=== PATIENT | male | born 1970 | race Caucasian/White ===

== ENCOUNTER 2020-03-30 08:02 | Outpatient (CLI) | payer OTHER ==
[2020-03-30] MEDS ORDERED: AMLO-211 PO (08:37)
[2020-03-30] MEDS ORDERED: DOXA1TAB2 PO (08:37)
[2020-03-30] MEDS ORDERED: CARV-39 PO (08:37)
[2020-03-30] MEDS ORDERED: CYCL10TA2 PO (08:37)
[2020-03-30] MEDS ORDERED: VALS1TAB30 PO (08:37)
[2020-03-30] MEDS ORDERED: TIZA4TAB2 PO (08:38)
[2020-03-30 09:49] LABS: BASOPHILS % (AUTO) 1 % (0-1); EOSINOPHILS % (AUTO) 3 % (1-7); LYMPHOCYTES % (AUTO) 30 % (22-44); MEAN CORPUSCULAR HEMOGLOBIN 29.7 pg (27.5-34.5); MEAN CORPUSCULAR HGB CONC 33.7 g/dL (33.2-36.2); MEAN PLATELET VOLUME 7.8 fL (7.4-10.4); MONOCYTES % (AUTO) 9 % (2-9); NEUTROPHILS % (AUTO) 58 % (42-75); PLATELET COUNT 363 x10^3/uL (130-400); RED CELL DISTRIBUTION WIDTH 13.8 % (9.4-14.8)
[2020-03-30 09:57] LABS: MD NO
[2020-03-30 09:58] LABS: ALBUMIN 3.7 g/dL (3.4-5.0); ANION GAP 7 mmol/L (5-15); CALCIUM 8.8 mg/dL (8.5-10.1); CHLORIDE 106 mmol/L (98-107)
[2020-03-30 09:59] LABS: INTERNATIONAL NORMALIZED RATIO 1.17 (0.93-1.1); PROTHROMBIN TIME 12.5 Seconds (9.6-11.5)
[2020-03-30 10:02] LABS: ALANINE AMINOTRANSFERASE 32 U/L (12-78); ALKALINE PHOSPHATASE 90 U/L (45-117); BILIRUBIN,TOTAL 0.5 mg/dL (0.2-1.0); CREATININE 0.92 mg/dL (0.7-1.3); TOTAL PROTEIN 7.3 g/dL (6.4-8.2)
[2020-03-31 10:48] LABS: MICROSCOPIC NOT IND
== END 2020-03-30 23:59 | disposition home or self-care (01) ==
LOC: STAR 08:02
PROVIDERS: ATTEND Neurological Surgery
DX: Z01.812 Encounter for preprocedural laboratory examination (principal); Z01.810 Encounter for preprocedural cardiovascular examination; Z20.822 Contact with and (suspected) exposure to COVID-19; Z01.811 Encounter for preprocedural respiratory examination; R82.90 Unspecified abnormal findings in urine; R94.31 Abnormal electrocardiogram [ECG] [EKG]; R79.1 Abnormal coagulation profile; M43.06 Spondylolysis, lumbar region; M51.36 Other intervertebral disc degeneration, lumbar region; M51.34 Other intervertebral disc degeneration, thoracic region
CPT/HCPCS: 71046; 80053; 81003; 85025; 85610; 85730; 87635; 93005

== ENCOUNTER 2020-04-03 11:36 | Observation (INO) | payer OTHER ==
[2020-04-02 10:22] LABS: ANION GAP 6 mmol/L (5-15); CHLORIDE 102 mmol/L (98-107); CREATININE 0.97 mg/dL (0.7-1.3)
[2020-04-02 10:25] LABS: INTERNATIONAL NORMALIZED RATIO 1.25 (0.93-1.1); PROTHROMBIN TIME 13.3 Seconds (9.6-11.5)
[~2020-04-03] VITALS: Ht 170.2 cm; Wt 116.0 kg
[~2020-04-03 11:36] MED LIST: AMLO-211 PO; BACITRACIN 50,000 UNIT ONE; BUPIVACAINE 0.25% ONE; BUPIVACAINE/PF 0.5% ONE; CARV-39 PO; CYCL10TA2 PO; DOXA1TAB2 PO; TIZA4TAB2 PO; VALS1TAB30 PO; VANCOMYCIN 1,000 MG ONE
[2020-04-03] MEDS ORDERED: CHLORHEXIDINE 15 ML UDC MM STA (11:51)
[2020-04-03] MEDS ORDERED: LACTATED RINGERS 1,000 ML IV SCH (12:00)
[2020-04-03 12:10] VITALS: BP 149/95
[2020-04-03] MEDS ORDERED: FENTANYL PF 1000 MCG/20ML ONE (12:58)
[2020-04-03] MEDS ORDERED: MIDAZOLAM 1 MG/ML, 2ML ONE (12:58)
[2020-04-03 13:21] LABS: ALANINE AMINOTRANSFERASE 57 U/L (12-78); ANION GAP 7 mmol/L (5-15); CALCIUM 8.7 mg/dL (8.5-10.1); CHLORIDE 107 mmol/L (98-107); CREATININE 0.87 mg/dL (0.7-1.3)
[2020-04-03 13:23] LABS: ALKALINE PHOSPHATASE 99 U/L (45-117); BILIRUBIN,TOTAL 0.3 mg/dL (0.2-1.0); TOTAL PROTEIN 7.8 g/dL (6.4-8.2)
[2020-04-03 13:24] LABS: INTERNATIONAL NORMALIZED RATIO 1.23 (0.93-1.1); PROTHROMBIN TIME 13.1 Seconds (9.6-11.5)
[2020-04-03] MEDS ORDERED: PROPOFOL 10 MG/ML, 20ML ONE (14:02)
[2020-04-03] MEDS ORDERED: CEFAZOLIN 1,000 MG ONE (14:02)
[2020-04-03] MEDS ORDERED: ONDANSETRON 2MG/ML, 2ML ONE (14:02)
[2020-04-03] MEDS ORDERED: ROCURONIUM 10 MG/ML,10ML ONE (14:02)
[2020-04-03] MEDS ORDERED: DEXAMETHASONE 4 MG/ML, 1ML ONE (14:02)
[2020-04-03] MEDS ORDERED: SUCCINYLCHOLINE 20 MG/ML, 10ML ONE (14:02)
[2020-04-03] MEDS ORDERED: EPINEPHRINE 1 MG/ML, 1ML INFIL ONE (14:48)
[2020-04-03] MEDS ORDERED: FENTANYL PF 100 MCG/2ML ONE ×2 (14:54→18:26)
[2020-04-03] MEDS ORDERED: BUPIVACAINE LIPOSOME/PF 20ML INFIL ONE (14:59)
[2020-04-03] MEDS ORDERED: FENTANYL PF 100 MCG/2ML EPIDPUSH ONE (15:00)
[2020-04-03] MEDS ORDERED: BUPIVACAINE LIPOSOME/PF 10ML INFIL ONE (15:00)
[2020-04-03] MEDS ORDERED: BUPIVACAINE/PF 0.25% EPIDPUSH ONE (15:00)
[2020-04-03] MEDS ORDERED: hydrALAzine 20 MG/ML, 1ML IV PRN (16:00)
[2020-04-03] MEDS ORDERED: morphine SULFATE 10 MG/ML, 1ML IVPush PRN (16:00)
[2020-04-03] MEDS ORDERED: KETOROLAC 30 MG/1 ML IV PRN (16:00)
[2020-04-03] MEDS ORDERED: CEPHALEXIN 500 MG CAPSULE PO SCH (16:00)
[2020-04-03] MEDS ORDERED: HYDROcodone/APAP 10/325 MG TABLET PO PRN (16:00)
[2020-04-03] MEDS ORDERED: PROMETHAZINE 25 MG/ML, 1ML IV PRN (16:00)
[2020-04-03] MEDS ORDERED: DIPHENHYDRAMINE 50 MG/ML, 1ML IVPush PRN (16:00)
[2020-04-03] MEDS ORDERED: OXYcodone 5 MG/5 ML ORAL.SOL UDC PO PRN (16:00)
[2020-04-03] MEDS ORDERED: DIAZEPAM 5 MG/ML, 2ML IV PRN ×2 (16:00)
[2020-04-03] MEDS ORDERED: D5%-0.9% NACL+KCL 20MEQ 1,000 ML IV SCH (16:00)
[2020-04-03] MEDS ORDERED: PHARMACY MAY ADJ FOR RENAL FX MC PRN (16:00)
[2020-04-03] MEDS ORDERED: HYDROmorphone 1 MG/ML, 1ML INJ IV PRN (16:00)
[2020-04-03] MEDS ORDERED: LABETALOL 5MG/ML, 20ML IV PRN (16:00)
[2020-04-03] MEDS ORDERED: ALBUTEROL SULFATE 2.5 MG/3 ML NPPB PRN (16:00)
[2020-04-03] MEDS ORDERED: FENTANYL PF 100 MCG/2ML IV PRN (16:00)
[2020-04-03] MEDS ORDERED: MEPERIDINE/PF 25MG/0.5ML IVPush PRN (16:00)
[2020-04-03] MEDS ORDERED: CYCLOBENZAPRINE 10 MG TABLET PO PRN ×2 (16:00)
[2020-04-03] MEDS ORDERED: ONDANSETRON 2MG/ML, 2ML IVPush PRN ×2 (16:00)
[2020-04-03] MEDS ORDERED: METOCLOPRAMIDE 5 MG/ML, 2ML IV PRN (16:00)
[2020-04-03] MEDS ORDERED: HYDR1TAB53 PO (16:01)
[2020-04-03] MEDS ORDERED: CEPH-376 PO (16:01)
[2020-04-03] MEDS ORDERED: CYCL10TA2 PO (16:01)
[2020-04-03] MEDS ORDERED: TIZANIDINE 4MG TABLET PO SCH (21:00)
[2020-04-03] MEDS ORDERED: SODIUM CHLORIDE FLUSH 10ML SYR IVF SCH (21:00)
[2020-04-03] MEDS ORDERED: DOXAZOSIN 1MG TABLET PO SCH (21:00)
[2020-04-04] MEDS ORDERED: AMLODIPINE 10 MG TAB PO SCH (09:00)
[2020-04-04] MEDS ORDERED: HYDROCHLOROTHIAZIDE 25 MG TABLET PO SCH (09:00)
[2020-04-04] MEDS ORDERED: CARVEDILOL 25 MG TABLET PO SCH (09:00)
[2020-04-04] MEDS ORDERED: VALSARTAN 320 MG TABLET PO SCH (09:00)
== END 2020-04-03 17:56 | disposition home or self-care (01) ==
LOC: OUT 11:36 → ORIP 15:50
PROVIDERS: ADMIT Neurological Surgery; ATTEND Neurological Surgery
DX: M48.061 Spinal stenosis, lumbar region without neurogenic claudication (principal); M51.26 Other intervertebral disc displacement, lumbar region; M54.16 Radiculopathy, lumbar region; I10 Essential (primary) hypertension; M19.90 Unspecified osteoarthritis, unspecified site; Z87.891 Personal history of nicotine dependence; Z88.0 Allergy status to penicillin; Z79.899 Other long term (current) drug therapy
CPT/HCPCS: 36415; 63056; 72100; 80048; 80053; 85610; 85730; 95938; 95941; C9290; G0378; J0171; J0330; J0690; J1100; J2250; J2405; J2704; J3010; J3370; J7120; S0020; 76000

== ENCOUNTER 2020-05-12 03:30 | Emergency (ER) | payer OTHER ==
[~2020-05-12] VITALS: Ht 170.2 cm; Wt 117.5 kg
[~2020-05-12 03:30] MED LIST changes: -BACITRACIN 50,000 UNIT ONE; -BUPIVACAINE 0.25% ONE; -BUPIVACAINE/PF 0.5% ONE; +CEPH-376 PO; +HYDR1TAB53 PO; -VANCOMYCIN 1,000 MG ONE
--- NOTE | 2020-05-12 03:41 | NUR ---
Patient presents to ER c/o low back pain radiating to his legs since approx 2100 last night. Patient had recent back surg on 05/01. Yesterday he was "doing a lot" and afterward felt the pain. He took muscle relaxers and used his CBD/THC pen with no relief. Patient appears uncomfortable. Able to walk with no assistance and full range of motion in extremities. Respirations even and unlabored.
[2020-05-12] MEDS ORDERED: MORPHINE SULFATE 4 MG/ML, 1ML ONE (04:26)
[2020-05-12] MEDS ORDERED: METHOCARBAMOL 750 MG TABLET ONE (04:26)
[2020-05-12 04:27] LABS: BASOPHILS % (AUTO) 1 % (0-1); EOSINOPHILS % (AUTO) 0 % (1-7); LYMPHOCYTES % (AUTO) 11 % (22-44); MD NO; MEAN CORPUSCULAR HEMOGLOBIN 29.8 pg (27.5-34.5); MEAN CORPUSCULAR HGB CONC 34.2 g/dL (33.2-36.2); MEAN PLATELET VOLUME 7.3 fL (7.4-10.4); MONOCYTES % (AUTO) 5 % (2-9); NEUTROPHILS % (AUTO) 83 % (42-75); PLATELET COUNT 365 x10^3/uL (130-400); RED BLOOD COUNT 4.95 x10^6/uL (4.38-5.82); RED CELL DISTRIBUTION WIDTH 14.5 % (9.4-14.8)
[2020-05-12] MEDS ORDERED: MORPHINE SULFATE 4 MG/ML, 1ML IVPush PRN (04:30)
[2020-05-12 04:37] LABS: MICROSCOPIC NOT IND
[2020-05-12 04:38] LABS: ALANINE AMINOTRANSFERASE 21 U/L (12-78); ALBUMIN 3.9 g/dL (3.4-5.0); ANION GAP 8 mmol/L (5-15); CALCIUM 8.9 mg/dL (8.5-10.1); CHLORIDE 101 mmol/L (98-107); CREATININE 0.96 mg/dL (0.7-1.3)
[2020-05-12 04:40] LABS: ALKALINE PHOSPHATASE 100 U/L (45-117); BILIRUBIN,TOTAL 0.5 mg/dL (0.2-1.0); TOTAL PROTEIN 7.9 g/dL (6.4-8.2)
[2020-05-12] MEDS ORDERED: METHOCARBAMOL 750 MG TABLET PO ONE (05:00)
[2020-05-12] MEDS ORDERED: POTASSIUM CHLORIDE 20 MEQ TAB.ER.PRT ONE (05:05)
[2020-05-12] MEDS ORDERED: POTASSIUM CHLORIDE 20 MEQ TAB.ER.PRT PO ONE (05:30)
[2020-05-12 05:32] VITALS: BP 138/88
== END 2020-05-12 05:34 | disposition home or self-care (01) ==
LOC: ED 05:25
DX: M54.5 Low back pain (principal); E87.6 Hypokalemia
CPT/HCPCS: 36415; 80053; 81003; 85025; 96374; 99283; J2270

== ENCOUNTER 2020-06-05 08:44 | Inpatient (IN) | payer OTHER ==
[2020-06-02 16:06] VITALS: BP 176/99
[2020-06-02 16:23] LABS: MICROSCOPIC NOT IND
[2020-06-02 16:25] LABS: BASOPHILS % (AUTO) 2 % (0-1); EOSINOPHILS % (AUTO) 2 % (1-7); LYMPHOCYTES % (AUTO) 16 % (22-44); MD NO; MEAN CORPUSCULAR HEMOGLOBIN 29.9 pg (27.5-34.5); MEAN CORPUSCULAR HGB CONC 33.3 g/dL (33.2-36.2); MONOCYTES % (AUTO) 8 % (2-9); NEUTROPHILS % (AUTO) 73 % (42-75); PLATELET COUNT 453 x10^3/uL (130-400); RED BLOOD COUNT 5.08 x10^6/uL (4.38-5.82); RED CELL DISTRIBUTION WIDTH 14.9 % (9.4-14.8)
[2020-06-02 16:36] LABS: ALANINE AMINOTRANSFERASE 27 U/L (12-78); ANION GAP 4 mmol/L (5-15); CALCIUM 8.9 mg/dL (8.5-10.1); CHLORIDE 104 mmol/L (98-107); CREATININE 0.95 mg/dL (0.7-1.3); INTERNATIONAL NORMALIZED RATIO 1.16 (0.93-1.1); PROTHROMBIN TIME 12.4 Seconds (9.6-11.5)
[2020-06-02 16:38] LABS: ALKALINE PHOSPHATASE 93 U/L (45-117); BILIRUBIN,TOTAL 0.2 mg/dL (0.2-1.0); TOTAL PROTEIN 8.2 g/dL (6.4-8.2)
[~2020-06-05] VITALS: Ht 170.2 cm; Wt 119.2 kg
[~2020-06-05 08:44] MED LIST changes: +ASCO100018 PO; +BACITRACIN 50,000 UNIT ONE; +BUPIVACAINE/PF 0.5% ONE; +CHOL10003 PO; +EPINEPHRINE 1 MG/ML, 1ML ONE
[2020-06-05 09:22] VITALS: BP 143/91
[2020-06-05] MEDS ORDERED: GABA300C PO (09:27)
[2020-06-05] MEDS ORDERED: LACTATED RINGERS 1,000 ML IV SCH (09:30)
[2020-06-05] MEDS ORDERED: CHLORHEXIDINE 15 ML UDC PO ONE (09:30)
[2020-06-05 09:59] LABS: INTERNATIONAL NORMALIZED RATIO 1.2 (0.93-1.1); PROTHROMBIN TIME 12.8 Seconds (9.6-11.5)
[2020-06-05] MEDS ORDERED: FENTANYL PF 100 MCG/2ML IV PRN (11:30)
[2020-06-05] MEDS ORDERED: OXYcodone 5 MG/5 ML ORAL.SOL UDC PO PRN (11:30)
[2020-06-05] MEDS ORDERED: PROMETHAZINE 25 MG/ML, 1ML IVPush PRN (11:30)
[2020-06-05] MEDS ORDERED: HYDROmorphone 1 MG/ML, 1ML INJ IVPush PRN (11:30)
[2020-06-05] MEDS ORDERED: HYDROcodone/APAP 7.5-325MG/15ML UDC PO PRN (11:30)
[2020-06-05] MEDS ORDERED: MEPERIDINE/PF 25MG/0.5ML IVPush PRN (11:30)
[2020-06-05] MEDS ORDERED: ONDANSETRON 2MG/ML, 2ML IVPush PRN ×2 (11:30→14:30)
[2020-06-05] MEDS ORDERED: FENTANYL PF 100 MCG/2ML ONE ×2 (11:32→15:05)
[2020-06-05] MEDS ORDERED: PROPOFOL 50 ML ONE (11:32)
[2020-06-05] MEDS ORDERED: MIDAZOLAM 1 MG/ML, 2ML ONE (11:32)
[2020-06-05] MEDS ORDERED: ROCURONIUM 10MG/ML,5ML ONE (11:33)
[2020-06-05] MEDS ORDERED: SUCCINYLCHOLINE 20 MG/ML, 10ML ONE (11:33)
[2020-06-05] MEDS ORDERED: GLYCOPYRROLATE 0.2MG/1ML, 5ML ONE (11:33)
[2020-06-05] MEDS ORDERED: CEFAZOLIN 1,000 MG ONE (11:33)
[2020-06-05] MEDS ORDERED: ONDANSETRON 2MG/ML, 2ML ONE (11:33)
[2020-06-05] MEDS ORDERED: PROPOFOL 10 MG/ML, 20ML ONE (11:33)
[2020-06-05] MEDS ORDERED: DEXAMETHASONE 4 MG/ML, 1ML ONE (11:33)
[2020-06-05] MEDS ORDERED: NEOSTIGMINE 1 MG/ML, 10ML ONE (11:33)
[2020-06-05] MEDS ORDERED: PHENYLEPHRINE 10 MG/ML ONE (11:50)
[2020-06-05] MEDS ORDERED: EPHEDRINE 50 MG/ML, 1ML ONE (11:50)
[2020-06-05] MEDS ORDERED: VASOPRESSIN 20 UNIT/ML, 1ML ONE (12:20)
[2020-06-05] MEDS: DEXAMETHASONE 4 MG/ML, 1ML IVPush SCH ×2 (13:00→18:54)
[2020-06-05] MEDS ORDERED: CYCLOBENZAPRINE 10 MG TABLET PO PRN (14:30)
[2020-06-05] MEDS ORDERED: METHOCARBAMOL 750 MG TABLET PO PRN (14:30)
[2020-06-05] MEDS ORDERED: SENNA/DOCUSATE TABLET PO PRN (14:30)
[2020-06-05] MEDS ORDERED: HYDROcodone/APAP 5/325 TABLET PO PRN (14:30)
[2020-06-05] MEDS ORDERED: morphine SULFATE 10 MG/ML, 1ML IVPush PRN (14:30)
[2020-06-05] MEDS ORDERED: MAGNESIUM HYDROXIDE 8%, 30ML UDC PO PRN (14:30)
[2020-06-05] MEDS ORDERED: PROMETHAZINE 25 MG/ML, 1ML IM PRN (14:30)
[2020-06-05] MEDS ORDERED: PHARMACY MAY ADJ FOR RENAL FX MC PRN (14:30)
[2020-06-05] MEDS ORDERED: HYDROcodone/APAP 10/325 MG TABLET PO PRN (14:30)
[2020-06-05] MEDS ORDERED: DIPHENHYDRAMINE 50 MG/ML, 1ML IM PRN (14:30)
[2020-06-05] MEDS ORDERED: DIPHENHYDRAMINE 50 MG CAPSULE PO PRN (14:30)
[2020-06-05] MEDS ORDERED: ACETAMINOPHEN 650 MG/20.3 ML UDC ONE (15:05)
[2020-06-05] MEDS ORDERED: OXYcodone 5 MG/5 ML ORAL.SOL UDC ONE (15:05)
[2020-06-05] MEDS ORDERED: METHOCARBAMOL 1,000 MG in DEXTROSE 5% 100 ML IV ONE (15:15)
[2020-06-05 16:05] VITALS: BP 158/79
[2020-06-05] MEDS: NS + 20MEQ KCL 1,000 ML IV SCH (17:28)
[2020-06-05] MEDS: GABAPENTIN 300 MG CAPSULE PO SCH ×2 (17:28→21:23)
[2020-06-05 19:55] VITALS: BP 121/75
[2020-06-05] MEDS ORDERED: DOXAZOSIN 2MG TABLET PO SCH (21:00)
[2020-06-05] MEDS: CEFAZOLIN PMX 1GM/50ML 50 ML IVPB SCH (21:23)
[2020-06-05] MEDS: SODIUM CHLORIDE FLUSH 10ML SYR IVF SCH (21:23)
[2020-06-05] MEDS: OXYcodone/APAP 5/325MG TABLET PO PRN (21:32)
[2020-06-06 00:37] VITALS: BP 122/75
[2020-06-06] MEDS: DEXAMETHASONE 4 MG/ML, 1ML IVPush SCH ×3 (01:28→14:46)
[2020-06-06] MEDS: NS + 20MEQ KCL 1,000 ML IV SCH ×2 (02:30→12:30)
[2020-06-06 04:03] VITALS: BP 138/79
[2020-06-06] MEDS: CEFAZOLIN PMX 1GM/50ML 50 ML IVPB SCH (06:07)
[2020-06-06 08:36] VITALS: BP 130/80
[2020-06-06] MEDS: GABAPENTIN 300 MG CAPSULE PO SCH (08:55)
[2020-06-06] MEDS: SODIUM CHLORIDE FLUSH 10ML SYR IVF SCH (08:56)
[2020-06-06] MEDS ORDERED: CARVEDILOL 25 MG TABLET PO SCH (09:00)
[2020-06-06] MEDS ORDERED: HYDROCHLOROTHIAZIDE 25 MG TABLET PO SCH (09:00)
[2020-06-06] MEDS ORDERED: VALSARTAN 320 MG TABLET PO SCH (09:00)
[2020-06-06] MEDS ORDERED: AMLODIPINE 10 MG TAB PO SCH (09:00)
[2020-06-06] MEDS ORDERED: CHOLECALCIFEROL 1,000 UNIT TABLET PO SCH (09:00)
[2020-06-06] MEDS: OXYcodone/APAP 5/325MG TABLET PO PRN ×2 (09:19→14:45)
[2020-06-06] MEDS ORDERED: METH4TAB2 PO (12:22)
[2020-06-06] MEDS ORDERED: SULF1TAB23 PO (12:22)
[2020-06-06] MEDS ORDERED: OXYC1TAB14 PO (12:22)
[2020-06-06] MEDS ORDERED: METH-640 PO (12:22)
[2020-06-06 13:18] VITALS: BP 137/82
== END 2020-06-06 16:00 | disposition home or self-care (01) | DRG 473 ==
LOC: ORIP 08:44 → 4NE 16:03
PROVIDERS: ADMIT Neurological Surgery; ATTEND Neurological Surgery
PROC: 0RG2070 Fusion of 2 or more Cervical Vertebral Joints with Autologous Tissue Substitute, Anterior Approach, Anterior Column, Open Approach (ICD-10-PCS; 2020-06-05)
PROC: 01N10ZZ Release Cervical Nerve, Open Approach (ICD-10-PCS; 2020-06-05)
PROC: 4A11X4G Monitoring of Peripheral Nervous Electrical Activity, Intraoperative, External Approach (ICD-10-PCS; 2020-06-05)
PROC: 0RG20A0 Fusion of 2 or more Cervical Vertebral Joints with Interbody Fusion Device, Anterior Approach, Anterior Column, Open Approach (ICD-10-PCS; principal; 2020-06-05 12:00)
DX: M48.02 Spinal stenosis, cervical region (principal); M50.11 Cervical disc disorder with radiculopathy, high cervical region; M50.121 Cervical disc disorder at C4-C5 level with radiculopathy; M50.122 Cervical disc disorder at C5-C6 level with radiculopathy; M50.123 Cervical disc disorder at C6-C7 level with radiculopathy; I10 Essential (primary) hypertension; Z88.1 Allergy status to other antibiotic agents
CPT/HCPCS: 36415; 72040; 72050; S0020; 71046; 80053; 81003; 85025; 85610; 85730; 86850; 86900; 93005; 95938; 95941; C1713; G0378; J0171; J0690; J1100; J2250; J2405; J2704; J2710; J3010; J3480; C1762; C1889; J0330; J2370; J2800; J7120; U0003